=== PATIENT | female | born 1970 ===

== ENCOUNTER 2017-10-24 12:18 | Emergency (ER) | payer OTHER ==
[2017-10-24 12:19] VITALS: BMI 30.1
[2017-10-24 13:09] VITALS: BP 125/78; PULSE 76; RESP 16; TEMP 98.2; O2SAT 97
--- NOTE | 2017-10-24 13:42 | ED PDOC ---
Arrival/HPI - General Chief Complaint: Abdominal Pain Time Seen by Provider: 10/24/17 13:32 Historian: Patient - History of Present Illness Narrative History of Present Illness (Text): 10/24/17 13:42 46 year old female, with no significant past medical history, presents to the emergency department complaining of neck pain radiating down to the shoulders and all the way to the hands for the past few months. Patient reports a burning sensation. 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 Patient also reports she felt a bulge to the right abdomen that began 2 weeks ago. Patient reports she's taken Tylenol and Advil with no relief. Patient denies any fever, chills, chest pain, shortness of breath, nausea, vomiting, diarrhea, urinary symptoms, back pain, headache, dizziness, or any other complaints. PMD: None Symptom Onset: Gradual Symptom Course: Unchanged Activities at Onset: Light Context: Home, Work Past Medical History - Provider Review Nursing Documentation Reviewed: Yes - Infectious Disease Hx of Infectious Diseases: None - Psychiatric Hx Psychophysiologic Disorder: No Hx Substance Use: No - Surgical History Hx Tubal Ligation: Yes Family/Social History - Physician Review Nursing Documentation Reviewed: Yes Family/Social History: No Known Family HX Smoking Status: Never Smoked Hx Alcohol Use: No Hx Substance Use: No Allergies/Home Meds Allergies/Adverse Reactions: Allergies No Known Allergies Allergy (Verified 10/24/17 13:01) Home Medications: Home Meds Medication Instructions Recorded Confirmed No Known Home Med 10/24/17 10/24/17 Review of Systems - Physician Review All systems were reviewed & negative as marked: Yes - Review of Systems Constitutional: absent: Fevers, Other (Chills) Respiratory: absent: SOB Cardiovascular: absent: Chest Pain Gastrointestinal: Other (abdomen bulge). absent: Diarrhea, Nausea, Vomiting Genitourinary Female: absent: Dysuria, Frequency, Hematuria Musculoskeletal: Neck Pain. absent: Back Pain Neurological: absent: Headache, Dizziness Physical Exam Vital Signs Reviewed: Yes Vital Signs Temp Pulse Resp BP Pulse Ox 10/24/17 13:07 98.2 F 76 16 125/78 97 Temperature: Afebrile Blood Pressure: Normal Pulse: Regular Respiratory Rate: Normal Appearance: Positive for: Well-Appearing, Non-Toxic, Comfortable Pain Distress: None Mental Status: Positive for: Alert and Oriented X 3 - Systems Exam Head: Present: Atraumatic, Normocephalic Pupils: Present: PERRL Extroacular Muscles: Present: EOMI Conjunctiva: Present: Normal Mouth: Present: Moist Mucous Membranes Neck: Present: Normal Range of Motion Respiratory/Chest: Present: Clear to Auscultation, Good Air Exchange. No: Respiratory Distress, Accessory Muscle Use Cardiovascular: Present: Regular Rate and Rhythm, Normal S1, S2. No: Murmurs Abdomen: Present: Normal Bowel Sounds. No: Tenderness, Distention, Peritoneal Signs, Hernias (No noticable hernia to palpation) Back: Present: Normal Inspection Upper Extremity: Present: Normal Inspection. No: Cyanosis, Edema Lower Extremity: Present: Normal Inspection. No: Edema Neurological: Present: GCS=15, CN II-XII Intact, Speech Normal Skin: Present: Warm, Dry, Normal Color. No: Rashes Psychiatric: Present: Alert, Oriented x 3, Normal Insight, Normal Concentration Medical Decision Making ED Course and Treatment: 10/24/17 13:42 Impression: 46 year old female presents complaining of neck pain radiating down the arms for the past few months. Patient also complaining of bulge to the abdomen. PE shows no noticeable hernia to palpation. Plan: -- Reassess and disposition Progress Notes: Recommend patient to surgeon for abdominal symptoms and recommended patient neurologist for radiating neck pain. - Scribe Statement The provider has reviewed the documentation as recorded by the Eugene Cohen Provider Scribe Attestation: All medical record entries made by the Scribnew were at my direction and personally dictated by me. I have reviewed the chart and agree that the record accurately reflects my personal performance of the history, physical exam, medical decision making, and the department course for this patient. I have also personally directed, reviewed, and agree with the discharge instructions and disposition. Disposition/Present on Arrival - Present on Arrival Any Indicators Present on Arrival: No History of DVT/PE: No History of Uncontrolled Diabetes: No Urinary Catheter: No History of Decub. Ulcer: No History Surgical Site Infection Following: None - Disposition Have Diagnosis and Disposition been Completed?: Yes Diagnosis: Hernia of anterior abdominal wall, Radiculopathy affecting upper extremity Disposition: HOME/ ROUTINE Disposition Time: 13:45 Patient Plan: Discharge Condition: STABLE Additional Instructions: Dr Maribel Rhodes Neurology [phone] Dr. Casas Surgery [phone] Referrals: PCP,NO [Primary Care Provider] - Follow up with primary Forms: [employer] ([place]rian)
== END 2017-10-24 14:15 | disposition home or self-care (01) ==
LOC: ED 12:18
DX: K43.9 Ventral hernia without obstruction or gangrene (principal); M54.10 Radiculopathy, site unspecified